=== PATIENT | male | born 1985 | race African-American/Black ===

== ENCOUNTER 2022-07-19 21:57 | Emergency (ER) | payer MEDICAID, OTHER ==
[~2022-07-19] VITALS: Ht 175.3 cm; Wt 109.1 kg
[2022-07-20] MEDS ORDERED: LIDOCAINE 1% HCL (LOCAL ANESTH.) INJ 20ML MDV ID ONE (00:15)
[2022-07-20] MEDS ORDERED: HYDROmorphone HCL 2 MG/ML VL/or syr IV ONE (00:30)
[2022-07-20] MEDS ORDERED: HYDR-4902 PO (01:57)
[2022-07-20] MEDS ORDERED: IBUP800T26 PO ×2 (02:03→02:56)
[2022-07-20 02:56] VITALS: BP 160/70
== END 2022-07-20 03:03 | disposition home or self-care (01) ==
LOC: EDBD 21:57 → ER 22:05
DX: S02.2XXA Fracture of nasal bones, initial encounter for closed fracture (principal); S06.0X0A Concussion without loss of consciousness, initial encounter; S01.511A Laceration without foreign body of lip, initial encounter; Z79.1 Long term (current) use of non-steroidal anti-inflammatories (NSAID); Y04.2XXA Assault by strike against or bumped into by another person, initial encounter; Y93.89 Activity, other specified; Y92.89 Other specified places as the place of occurrence of the external cause; Y99.8 Other external cause status
CPT/HCPCS: 36415; 70450; 70486; 71250; 72125; 74176; 80320; 96374; 99285; J1170; J2001

== ENCOUNTER 2024-10-08 15:45 | Emergency (ER) | payer MEDICAID, OTHER ==
[~2024-10-08] VITALS: Ht 175.3 cm; Wt 113.6 kg
[~2024-10-08 15:45] MED LIST: IBUP-1455 PO
[2024-10-08 15:48] VITALS: BP 148/86; RESP 18; TEMP 97.6; O2SAT 98
--- NOTE | 2024-10-08 15:58 | ECG ---
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
[2024-10-08 16:24] VITALS: PULSE 85
--- NOTE | 2024-10-08 16:24 | ED.PDOC ---
History of Present Illness HPI Comments 39 y/o obese M, with a history of asthma and seizures, is BIBA for c/o seizure, today. Per EMS, patient was walking to his bedroom when he suddenly collapsed and had a witnessed tonic-clonic seizure seen by his girlfriend. When paramedics arrived on scene, patient was confused but by the time he arrived to the ER he was answering all questions appropriately. No signs of incontinence. No signs of trauma. Blood glucose 91 in the field. Patient was not have any recollection of the event with the exception of walked into his room and then waking up on the ground with paramedics around him. He states his last seizure was approximately three months ago and it was not on any seizure medications. Patient also states that he was had a stomach bug recently and has had intermittent nausea and vomiting. Patient also states that he was recently incarcerated and released. He denies any other symptoms at this time. No recent history of head trauma. Patient states that he has never seen a neurologist. 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 Past Medical History PAST MEDICAL HISTORY: Asthma, Seizures Surgical History: Denies all surgeries Family History Family History: Unknown Social History Smoker: Non-Smoker Alcohol: Denies ETOH Use Drugs: Denies Drug Use Lives In: Home All Other Systems: Reviewed and Negative (Comprehensive systems review obtained and negative except for what is stated in the HPI.) Physical Exam General Appearance: No Apparent Distress, Normal HEENT: Normal ENT Inspection, Pharynx Normal, TMs Normal, Other (No evidence of tongue trauma, small abrasion to the left inner cheek) Neck: Full Range of Motion, Non-Tender, Normal, Normal Inspection Respiratory: Chest Non-Tender, Lungs Clear, No Accessory Muscle Use, No Respiratory Distress, Normal Breath Sounds Cardiovascular: No Edema, No JVD, No Murmur, No Gallop, Normal Peripheral Pulses, Regular Rate/Rhythm Breast Exam: Deferred Gastrointestinal: No Organomegaly, Non Tender, No Pulsatile Mass, Normal Bowel Sounds, Soft Genitalia: Deferred Pelvic: Deferred Rectal: Deferred Extremities: No calf tenderness, Normal capillary refill, Normal inspection, Normal range of motion, Non-tender, No pedal edema Musculoskeletal : Apperance: Normal Neurologic: Alert, panel maker II-XII nml as Tested, No Motor Deficits, Normal Affect, Normal Mood, No Sensory Deficits Cerebellar Function: Normal Reflexes: Normal Skin: Dry, Normal Color, Warm Lymphatic: No Adenopathy Was a procedure done? Was a procedure done?: No EKG EKG : Pulse Rate (adult): 85 [place]: Normal Cardiac Rhythm: NSR Block: None Hypertrophy: None ST: Normal Differential Dx Considerations may include: seizures, status epilepticus, head trauma, meningitis, encephalitis, encephalopathy, drug overdose, toxic ingestion, dehydration, electrolyte abnormality, hypoglycemia X-Ray, Labs, Meds, VS Vital Signs Date Time Temp Pulse Resp B/P (MAP) Pulse Ox O2 Delivery O2 Flow Rate FiO2 10/08/24 16:24 85 10/08/24 15:53 85 10/08/24 15:48 97.6 94 18 148/86 (106) 98 97.6 Lab Test 10/08/24 17:02 Range/Units White Blood Count 6.6 4.4-10.8 10^3/uL Red Blood Count 4.37 L 4.5-5.90 10^6/uL Hemoglobin 14.6 13.5-17.5 g/dL Hematocrit 42.9 41.0-53.0 % Mean Corpuscular Volume 98.2 80.0-100.0 fL Mean Corpuscular Hemoglobin 33.5 H 28.0-32.0 pg Mean Corpuscular Hemoglobin Concent 34.1 32.0-36.0 g/dL Red Cell Distribution Width 12.9 11.8-14.3 % Platelet Count 283 140-450 10^3/uL Mean Platelet Volume 7.7 6.9-10.8 fL Neutrophils (%) (Auto) 67.6 37.0-80.0 % Lymphocytes (%) (Auto) 18.4 10.0-50.0 % Monocytes (%) (Auto) 11.9 0.0-12.0 % Eosinophils (%) (Auto) 1.3 0.0-7.0 % Basophils (%) (Auto) 0.8 0.0-2.0 % Neutrophils # (Auto) 4.4 1.6-8.6 10 ^3/uL Lymphocytes # (Auto) 1.2 0.4-5.4 10 ^3/uL Monocytes # (Auto) 0.8 0-1.3 10 ^3/uL Eosinophils # (Auto) 0.1 0-0.8 10 ^3/uL Basophils # (Auto) 0.1 0-0.2 10 ^3/uL Nucleated Red Blood Cells 0.1 % Sodium Level 142 136-145 mmol/L Potassium Level 4.1 3.5-5.1 mmol/L Chloride Level 110 H 98-107 mmol/L Carbon Dioxide Level 25 20-31 mmol/L Anion Gap 7 5-15 Blood Urea Nitrogen 10 9-23 mg/dL Creatinine 1.28 0.700-1.30 mg/dL Glomerular Filtration Rate Calc 72 >90 mL/min BUN/Creatinine Ratio 7.8 L 10.0-20.0 Serum Glucose 88 74-106 mg/dL Calcium Level 9.5 8.7-10.4 mg/dL Phosphorus Level 2.8 2.4-5.1 mg/dL Magnesium Level 2.0 1.6-2.6 mg/dL [place] [id number] Ph: [phone] DIAGNOSTIC IMAGING Diagnostic Imaging Report : [id number] Signed PATIENT: Kai Hopkins ACCT: [id number] UNIT: [id number] : 1985 LOC: ER ROOM / BED: / AGE / SEX: 39 / M ADM STATUS: REG ER SERVICE [id number] ORDERING PHYSICIAN: KYRIE RG MD PROCEDURE(s): HWOCT - HEAD WITHOUT CONTRAST REASON: seizure ORDER NUMBER(s): [id number], ACCESSION NUMBER(s): [id number] CT HEAD WITHOUT CONTRAST INDICATION: seizure COMPARISON: None TECHNIQUE: CT of the head without intravenous contrast. RADIATION DOSE: CTDIvol: 59.52 mGy, DLP: 1073.07 mGy*cm FINDINGS: There is no evidence of intracranial hemorrhage, infarct, extra-axial collection, mass effect, midline shift, herniation or hydrocephalus. The ventricles, sulci and cisterns are normal. The mondragon-white differentiation is normal. Mild mucosal thickening in right maxillary sinus; Otherwise unremarkable. Mastoid air cells and middle ear cavities are clear. Soft tissues and osseous structures are unremarkable. IMPRESSION: No intracranial abnormality identified. ATED BY: NELSON BOSWELL MD DICTATED DATE/TIME: 10/08/241725 SIGNED BY: NELSON BOSWELL MD SIGNED DATE/TIME: 10/08/241725 CC: X-Ray, Labs, Meds, VS Comment 39-year-old male with known history of seizures not on any antiepileptic medication here today status post having a witnessed seizure. Vital signs stable, afebrile. Physical exam with evidence of inner cheek abrasion but otherwise unremarkable. Patient alert and oriented on arrival to the ER. Patient did have a postictal state when paramedics arrived on scene. Labs overall unremarkable without significant acute findings. CT head without any acute findings as well. I had a long discussion with the patient about the importance of starting him on antiepileptic medication. I also informed him that we will be filing a DMV report given his seizure, completed this. Patient was states that he will follow up with his primary care provider for referral to Neurology and I encouraged him to do so within the next 1-2 days. Patient has no history of alcohol abuse, doubt alcohol withdrawal seizures. Denies any toxic ingestion. No recent head trauma. No recent fever and has not been confused, doubt meningitis/encephalitis. Glucose, sodium, and potassium all normal. Patient decided to signed out AMA while I was waiting for a neurology consult to see if we should start the patient on antiepileptic medication. I informed the patient of this however he stated he still wanted to go as him/his partner have kids that they have to take care of. Patient signed the AMA form and left the hospital ambulating with a steady gait in no distress with his partner. Time of 1ST Reevaluation: 16:30 Reevaluation 1ST: Unchanged Patient Education/Counseling: Diagnosis, Treatment Family Education/Counseling: No Family Present Departure 1 Departure Time of Disposition: 17:40 Impression: Primary Impression: Seizure Additional Impression: History of asthma Disposition: 07 LEFT AGAINST MEDICAL ADVICE Condition: Guarded Discharged With: Significant Other Critical Care Note Critical Care Time?: No Stability Stability form required: No Heart Score Heart Score: Heart Score Response (Comments) Value History N/A 0 EKG N/A 0 Age N/A 0 Risk Factors N/A 0 Troponin N/A 0 Total 0 I personally scribed for KYRIE RG MD ([email or web address]) on 10/08/24 at 16:24. Electronically submitted by Leonidas Palafox ([email or web address]). I personally scribed for KYRIE RG MD ([email or web address]) on 10/08/24 at 17:42. Electronically submitted by Leonidas Palafox ([email or web address]). KYRIE RG MD Oct 08, 2024 16:24
[2024-10-08 17:25] LABS: Basophils # (auto) 0.1 10 ^3/uL (0-0.2); Basophils % (auto) 0.8 % (0.0-2.0); Eosinophils # (auto) 0.1 10 ^3/uL (0-0.8); Eosinophils % (auto) 1.3 % (0.0-7.0); Hematocrit 42.9 % (41.0-53.0); Hemoglobin 14.6 g/dL (13.5-17.5); Lymphocytes # (auto) 1.2 10 ^3/uL (0.4-5.4); Lymphocytes % (auto) 18.4 % (10.0-50.0); Mean Corpuscular Hemoglobin 33.5 pg (28.0-32.0); Mean Corpuscular Hgb Conc. 34.1 g/dL (32.0-36.0); Mean Corpuscular Volume 98.2 fL (80.0-100.0); Monocytes # (auto) 0.8 10 ^3/uL (0-1.3); Monocytes % (auto) 11.9 % (0.0-12.0); Neutrophils # (auto) 4.4 10 ^3/uL (1.6-8.6); Neutrophils % (auto) 67.6 % (37.0-80.0); Nucleated Red Blood Cells % 0.1 %; Platelet Count (auto) 283 10^3/uL (140-450); Red Blood Cells 4.37 10^6/uL (4.5-5.90); Red Cell Distribution Width 12.9 % (11.8-14.3); White Blood Cell 6.6 10^3/uL (4.4-10.8)
--- NOTE | 2024-10-08 17:28 | DVH ---
CT HEAD WITHOUT CONTRAST INDICATION: seizure COMPARISON: None TECHNIQUE: CT of the head without intravenous contrast. RADIATION DOSE: CTDIvol: 59.52 mGy, DLP: 1073.07 mGy*cm FINDINGS: There is no evidence of intracranial hemorrhage, infarct, extra-axial collection, mass effect, midli ne shift, herniation or hydrocephalus. The ventricles, sulci and cisterns are normal. The mondragon-white differentiation is normal. Mild mucosal thickening in right maxillary sinus; Otherwise unremarkable. Mastoid air cells and middle ear cavities are clear. Soft tissues and osseous structures are unremark able. IMPRESSION: No intracranial abnormality identified.
[2024-10-08 17:29] LABS: Anion Gap 7 (5-15); Carbon Dioxide 25 mmol/L (20-31); Potassium 4.1 mmol/L (3.5-5.1); Sodium 142 mmol/L (136-145)
[2024-10-08 17:30] LABS: Calcium 9.5 mg/dL (8.7-10.4)
[2024-10-08 17:35] LABS: BUN/Creatinine Ratio 7.8 (10.0-20.0); Blood Urea Nitrogen 10 mg/dL (9-23); Glucose 88 mg/dL (74-106)
[2024-10-08 17:37] LABS: Phosphorus 2.8 mg/dL (2.4-5.1)
[2024-10-08 18:07] LABS: Chloride 110 mmol/L (98-107)
== END 2024-10-08 19:17 | disposition left against medical advice (07) ==
LOC: ER 15:45 → MERGE 15:45 → EDBD 15:45 → ER 19:17
DX: R56.9 Unspecified convulsions (principal); J45.909 Unspecified asthma, uncomplicated; Z88.0 Allergy status to penicillin; Z88.1 Allergy status to other antibiotic agents; W19.XXXA Unspecified fall, initial encounter; Y93.01 Activity, walking, marching and hiking; Y92.092 Bedroom in other non-institutional residence as the place of occurrence of the external cause; Y99.8 Other external cause status
CPT/HCPCS: 36415; 70450; 80048; 83735; 84100; 85025; 93005